=== PATIENT | female | born 1955 | race African-American/Black ===

== ENCOUNTER 2020-10-15 10:22 | Outpatient (CLI) | payer MEDICAID ==
[~2020-10-15] VITALS: Ht 154.9 cm; Wt 58.1 kg
[2020-10-15 10:54] VITALS: BP 145/89
--- NOTE | 2020-10-15 12:14 | Consultation ---
DATE OF CONSULTATION: 10/15/2020 CHIEF COMPLAINT: Referral for screening colonoscopy. PAST MEDICAL HISTORY: 1. Hypertension. 2. Hypercholesterolemia. 3. Depression. 4. Schizophrenia. PAST SURGICAL HISTORY: Hysterectomy. MEDICATIONS: Please see medication reconciliation list. FAMILY HISTORY: No family history of GI malignancies. SOCIAL HISTORY: The patient smokes about 5 cigarettes per day. Denies any alcohol or drug abuse. ALLERGIES: No known drug allergies. REVIEW OF SYSTEMS: Positive for abdominal pain, history of colonic polyps three years ago. On and off diarrhea. PHYSICAL EXAMINATION: VITAL SIGNS: Temperature 98.1, blood pressure 140/89, pulse 74, respirations 20. Height is 5 feet 1 inches, weight is 128. HEENT: Normocephalic and atraumatic. Sclerae anicteric. NECK: Supple. No evidence of obvious lymphadenopathy. CARDIOVASCULAR: Regular rate and rhythm. Plus S1, S2. LUNGS: Clear to auscultation bilaterally. ABDOMEN: Positive bowel sounds. Soft and nontender. No rebound. No guarding. No peritoneal sign. EXTREMITIES: No cyanosis, no clubbing, no edema. ASSESSMENT AND PLAN: This is a 65-year-old female referred for colonoscopy, had prior history of colonic polyps, also complained of diarrhea. The patient was given instruction for colonoscopy. Risks and benefits of procedure was explained to her. We will schedule her as soon as authorization is obtained. García Anand M.D. DR: Adelita JOB#: [id number] CC:
[2020-10-15] MEDS ORDERED: AMLODIPINE BESY10 MG ORAL (13:37)
[2020-10-15] MEDS ORDERED: ATORVASTATIN CA20 MG ORAL (13:37)
[2020-10-15] MEDS ORDERED: ABILIFY15 MG ORAL (13:37)
[2020-10-15] MEDS ORDERED: TRAZODONE HCL150 MG ORAL (13:37)
[2020-10-15] MEDS ORDERED: TRIAMTERENE-HC1 EAC6 ORAL (13:37)
[2020-10-15] MEDS ORDERED: IMODIUM MULTI-1 EACH PO (13:37)
[2020-10-15] MEDS ORDERED: VITAMIN B12-FO1 EAC1 PO (13:37)
[2020-10-15] MEDS ORDERED: CALCIUM + D3 E1 EACH PO (13:37)
== END 2020-10-15 12:22 | disposition home or self-care (01) ==
LOC: PAN 10:22
DX: R10.9 Unspecified abdominal pain (principal); R19.7 Diarrhea, unspecified; Z86.010 Personal history of colon polyps; Z90.710 Acquired absence of both cervix and uterus; F17.210 Nicotine dependence, cigarettes, uncomplicated; E78.00 Pure hypercholesterolemia, unspecified; F32.9 Major depressive disorder, single episode, unspecified; F20.9 Schizophrenia, unspecified; I10 Essential (primary) hypertension
CPT/HCPCS: 99203